=== PATIENT | male | born 1950 | race Caucasian/White ===

== ENCOUNTER 2018-10-17 13:09 | Inpatient (IN) | payer MEDICARE, MEDICAID ==
[~2018-10-17] VITALS: Ht 152.4 cm; Wt 68.0 kg
[2018-10-17 13:19] VITALS: BP 103/70
[2018-10-17] MEDS ORDERED: CLARITIN10 MG PO (13:26)
[2018-10-17] MEDS ORDERED: ZYRTEC10 M5 PO (13:26)
[2018-10-17] MEDS ORDERED: FLONASE 0.05%50 MCG NASAL (13:27)
[2018-10-17] MEDS ORDERED: [UNRECOGNIZED DRUG - OTHER] (13:27)
[2018-10-17] MEDS ORDERED: VITAMINC500 PO (13:27)
[2018-10-17] MEDS ORDERED: ASPIR 8181 M1 PO (13:27)
[2018-10-17 14:17] LABS: URINE BLOOD 3+ (Negative); URINE CLARITY CLEAR; URINE COLOR BROWN; URINE GLUCOSE-RANDOM NEGATIVE (Negative); URINE KETONES 1+ (Negative); URINE LEUKOCYTES-REFLEX 1+ (Negative); URINE PROTEIN 1+ (Negative); URINE SPECIFIC GRAVITY >= 1.030 (1.005-1.030)
[2018-10-17 14:21] LABS: ICTOTEST (BILI CONFIRMATORY) Positive (Negative); URINE BILIRUBIN 1+ (Negative); URINE NITRITE-REFLEX POSITIVE (Negative)
[2018-10-17 14:43] LABS: HEMATOCRIT 41.7 % (42.0-52.0); HEMOGLOBIN 14.3 gm/dL (14.0-18.0); MCH 28.8 pg (26.0-34.0); MCHC 34.2 g/dL (28.0-37.0); MCV 84.3 fL (80.0-100.0); MPV 8.4 fl. (7.2-11.1); NUCLEATED RBCS 0 /100WBC; PLATELET COUNT* 155 thou/uL (150-400); RBC 4.94 mil/uL (4.50-6.00); RDW-CV 14.4 % (10.5-14.5); WBC 9.7 thou/uL (4.0-11.0)
[2018-10-17 14:49] LABS: ANION GAP 9 mmol/L (7-16); BUN 23 mg/dL (7-18); CALCIUM 8.7 mg/dL (8.5-10.1); CHLORIDE 102 mmol/L (98-107); CO2 26 mmol/L (21-32); GLUCOSE 96 mg/dL (70-99); POTASSIUM 3.8 mmol/L (3.5-5.1); SODIUM 137 mmol/L (136-145)
[2018-10-17 14:56] LABS: SQUAMOUS >10 Many /LPF (0-3)
[2018-10-17 14:58] LABS: URINE RBC 3-10 Few /HPF (0-2)
[2018-10-17 14:59] LABS: ALBUMIN 2.7 g/dL (3.4-5.0); ALKALINE PHOSPHATASE 143 U/L (46-116); SGOT 67 U/L (15-37); SGPT 51 U/L (30-65); TOTAL BILIRUBIN 1.2 mg/dL (<0.1-1.0); TOTAL PROTEIN 7.1 g/dL (6.4-8.2); TROPONIN-I LEVEL <0.06 ng/mL (<0.06)
[2018-10-17 15:02] LABS: MUCUS >6 Heavy strn/LPF (None Seen)
[2018-10-17 15:03] LABS: WBC CLUMPS Few (None Seen)
[2018-10-17 15:04] LABS: CRYSTALS None Seen /LPF (None Seen); HYALINE CASTS 0-3 Few /LPF (None Seen)
[2018-10-17 15:09] LABS: ABSOLUTE LYMPHOCYTES 1.3 thou/uL (0.8-5.3); ABSOLUTE MONOCYTES 0.4 thou/uL (0.0-1.2); ABSOLUTE NEUTROPHILS 8.1 thou/uL (1.6-8.1); PLATELET ESTIMATE ADEQUATE
[2018-10-17 17:14] LABS: INR 1.1; PROTIME 11.2 Seconds (9.20-11.50)
[2018-10-17 17:38] VITALS: BP 104/79
--- NOTE | 2018-10-17 18:52 | NUR ---
PT ARRIVED TO UNIT ABOUT 174. VITALS STABLE. DENIED NAUSEA. HAS MINIMAL PAIN, DENIED MEDICATION. POSSIBLE SURGERY TOMORROW. NPO AFTER MIDNIGHT. IV IN R AC PATENT, INFUSING. BEDREST PER ORTH AT THIS TIME. DAUGHTER IN ROOM. FALL PRECAUTIONS IN PLACE. CALL LIGHT WITHIN REACH. WILL CONTINUE TO MONITOR.
[2018-10-17 20:00] VITALS: BP 117/65
[2018-10-18 04:04] LABS: HEMATOCRIT 39.4 % (42.0-52.0); HEMOGLOBIN 13.2 gm/dL (14.0-18.0); MCH 28.3 pg (26.0-34.0); MCHC 33.5 g/dL (28.0-37.0); MCV 84.4 fL (80.0-100.0); MPV 9.2 fl. (7.2-11.1); RBC 4.67 mil/uL (4.50-6.00); RDW-CV 14.5 % (10.5-14.5); WBC 5.8 thou/uL (4.0-11.0)
[2018-10-18 04:19] LABS: ALBUMIN 2.2 g/dL (3.4-5.0); CREATININE 0.8 mg/dL (0.6-1.3); MAGNESIUM 1.8 mg/dL (1.8-2.4); POTASSIUM 3.8 mmol/L (3.5-5.1); TOTAL BILIRUBIN 0.6 mg/dL (<0.1-1.0); TOTAL PROTEIN 6.2 g/dL (6.4-8.2)
[2018-10-18 08:00] VITALS: BP 126/69
--- NOTE | 2018-10-18 08:21 | NUR ---
Oriented x 3 but may have some forgetfulness. He was trying to pull off his gown and yelling out at times. He has voided frquently and it's been small amounts, he was bladder scanned and there was only 16 mls. This am he is oriented and did sign consent for request for medical records from [facility] regarding a possible AAA. Surgery to his left hip is on hold for now. He has had nothing by mouth since midnight. Vitals have been stable this shift. He was medicated x 2 for pain. He has slept well.
--- NOTE | 2018-10-18 11:38 | NUR ---
SW met pt and pt 2 dtrs in room to complete initial assessment, introduce self, and SW role. Pt alert and responds slowly in conversation. Pt lived at home in [facility] with a caregiver but for the past month, pt has been living with pt dtr in [place]. Pt dtrs requested that if pt needs SNF at dc, pt be placed in SNF in area. Pt dtr said that pt will most likely live with pt dtr as long as needed after surgery and/or SNF. SW to continue to follow to assist with safe dc planning.
[2018-10-18 11:47] VITALS: BP 126/69
[2018-10-18 15:44] VITALS: BP 118/79
--- NOTE | 2018-10-18 16:59 | EKG ---
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
--- NOTE | 2018-10-18 17:50 | NUR ---
PT A&Ox4. HARD OF HEARING AND PARTIAL VISION LOSS. HAD ORIF DONE BY KOJO. MEPILEX IS CLEAN DRY AND INTACT. SCDs AND ICE PACK IN PLACE. IV L FA PATENT. TOLERATING DIET. HAS NOT GOT UP SINCE SURGERY. ON 3. DAUGHTER IN ROOM. PAIN TOLERATED, DENIED PAIN MEDS. DENIED NAUSEA. FALL PRECAUTIONS IN PLACE. CALL LIGHT WITHIN REACH. WILL CONTINUE TO MONITOR.
[2018-10-18 20:00] VITALS: BP 104/71
[2018-10-19] VITALS: BP 124/81
[2018-10-19 03:53] VITALS: BP 129/80
[2018-10-19 04:08] LABS: HEMATOCRIT 42.5 % (42.0-52.0); HEMOGLOBIN 14.1 gm/dL (14.0-18.0)
--- NOTE | 2018-10-19 05:24 | NUR ---
ASSUMED PATIENT CARE AT 1900. PATIENT ALERT AND ORIENTED TIMES FOUR, CAN BE CONFUSED AT TIMES. NO COMPLAINTS OF PAIN OR DISCOMFORT NOTED. FAMILY AT BEDSIDE. IV PATENT TO FLUSHES. DRESSING C/D/I. STREET SWEEPER OPERATOR AND HOURLY ROUNDING COMLETED CHARTED
[2018-10-19 08:00] VITALS: BP 102/64
--- NOTE | 2018-10-19 13:22 | OP ---
[facility] [address] [place] [address] OPERATIVE REPORT Name: KEVIN SORIA Room: [address]#: [id number] Admission: 10/17/18 Attend Phys: Richar Chowdhury MD Discharge: Date of : 46 Report #: [id number] THIS REPORT FOR: //name// CC: Richar Chowdhury Physician staff [facility] DICTATED BY: Jl Gomez DO DATE OF SERVICE: 10/18/2018 PREOPERATIVE DIAGNOSIS: Left hip nondisplaced intertrochanteric/basicervical fracture. POSTOPERATIVE DIAGNOSIS: Left hip nondisplaced intertrochanteric/basicervical fracture. PROCEDURE: Left hip open reduction and internal fixation utilizing Ace Versa-Fx dynamic hip screw with sideplate with the following components: 1. Two hole 130-degree standard sideplate. 2. 100 mm x 12.7 mm standard thread compression lag screw. 3. 4.7 mm x 19 mm Hex Head compression screw. 4. 40 mm length and 38 mm length, 4.5 mm cortical screws. SURGEON: Ezequiel Thomas DO REGISTERED PUBLIC HEALTH NURSE: Jl Gomez DO ANESTHESIA: General. ESTIMATED BLOOD LOSS: 50 mL. ANTIBIOTICS: Unscheduled Rocephin IV. SPECIMENS: None. DRAINS: None. COMPLICATIONS: None. DISPOSITION: Stable to PACU and transferred back to the hospital floor for standard postoperative care. INDICATIONS FOR PROCEDURE: The patient is a pleasant 68-year-old male who unfortunately was seen yesterday at [facility] for consultation due to left hip pain after a fall where he landed directly on his left [place] [address] OPERATIVE REPORT Name: KEVIN SORIA Room: [address] IN [facility].#: [id number] Admission: 10/17/18 Attend Phys: Richar Chowdhury MD Discharge: Date of : 46 Report #: [id number] demonstrated a minimally displaced left hip intertrochanteric fracture. CT scan confirmed similar diagnosis. Recommendation was made for left hip open reduction and internal fixation with a DHS type device with compression screw and sideplate. The risks, benefits, complications, indications and alternative treatments were discussed and the patient wished to proceed with surgery today. DESCRIPTION OF PROCEDURE: The patient was seen in preoperative holding area. Correct operative site, left hip was initialed. The patient was taken back to the operating suite, placed in supine position on the [place] traction table, given benefit of general anesthesia. He was positioned in a well-padded traction boot for the left lower extremity and right lower extremity was flexed and abducted in a normal fashion. All bony prominences were well padded. Left hip was prepped and draped in typical fashion. Surgery began with a time-out, identifying correct patient, correct procedure, correct operative site, preoperative antibiotics and correct performing surgeon. Next, a straight lateral approach to the lateral aspect of the femur after marking appropriate location under fluoroscopic guidance was performed. Skin was incised roughly 5 cm in length with a 10 blade scalpel. Sharp dissection was taken down to the IT band, which was incised in line with the incision followed by the fascia. The fascia of the vastus lateralis muscle belly was then split longitudinally bluntly down to the femoral shaft. The guide for the lag screw was set at 130 degrees and utilizing the standard guide pin this was inserted through the guide and up into the femoral neck and head in a center-center position on both AP and lateral fluoroscopic images up into subchondral bone. We measured for roughly 100 mm lag screw. We then inserted our lag screw over our guidewire in the normal fashion until it was seated within the lateral cortex. We were then able to impact our 2-hole side DHS plate that locked that into her lag screw over top of this through the lateral cortex after we had reamed appropriately and this was then impacted into position that aligned up with our femoral shaft. We then placed a compression screw through the end of the plate and through the lag screw to compress the plate to the lag screw. We then placed two 4.5 mm cortical screws that were drilled and filled in the femoral shaft in normal fashion. One measured 40 mm, the other measured 38 mm. These had great cortical bite. Final tightening was performed on all screws. Final x-ray images were obtained, both in AP and lateral fluoroscopic images showing a great anatomic reduction of her hip fracture and great center-center location of our lag screw and appropriate tip to apex distance. Wound was thoroughly irrigated. IT band was closed in a [id number] fashion with #1 Vicryl suture. Subcutaneous layer was closed in a simple interrupted fashion with 2-0 Monocryl suture. Dennison were applied to the skin. Standard dressings were applied consisting of [place] [address] OPERATIVE REPORT Name: KEVIN SORIA Room: [address] IN [facility].#: [id number] Admission: 10/17/18 Attend Phys: Richar Chowdhury MD Discharge: Date of : 46 Report #: [id number] was awakened from general anesthesia and transferred in stable condition to the PACU. All sponge and needle counts were correct x 2. <ELECTRONICALLY SIGNED> By: Ezequiel Thomas DO 10/19/18 1322 1408 [id number] Thomas DO /areli
[2018-10-19 16:42] VITALS: BP 109/77
--- NOTE | 2018-10-19 17:17 | NUR ---
PT A&Ox4. VITALS STABLE. WORKED WELL WITH PT. UP WITH 1 USING GAITBELT AND WALKER. DRESSING IS CLEAN, DRY AND INTACT. PAIN CONTROLLED WITH NORCO AND OXY IR. FAMILY IN ROOM. TOLERATING DIET WELL. IV PATENT. FALL PRECAUTIONS IN PLACE. CALL LIGHT WITHIN REACH. WILL CONTINUE TO MONITOR.
[2018-10-19 19:55] VITALS: BP 101/69
--- NOTE | 2018-10-20 04:43 | NUR ---
ASSUMED PATIENT CARE AT 1900. PATIENT ALERT AND ORIENTED TIMES FOUR WITH CONFUSION. MINOR COMPLAINTS OF PAIN. ORAL MEDICATION GIVEN. ABLE TO AMBULATE WITH VERBAL DIRECTION, GAIT BELT AND WALKER. DRESSING C/D/I. LIGHTNING PROTECTION INSTALLER AND HOURLY ROUNDING COMPLETED DOCUMENTED.
[2018-10-20 04:46] LABS: ABSOLUTE EOSINOPHILS 0.1 thou/uL (0.0-0.7); ABSOLUTE LYMPHOCYTES 1.3 thou/uL (0.8-5.3); ABSOLUTE MONOCYTES 0.5 thou/uL (0.0-1.2); ABSOLUTE NEUTROPHILS 3.9 thou/uL (1.6-8.1); BASOPHILS 0.3 %; HEMATOCRIT 39.6 % (42.0-52.0); HEMOGLOBIN 13.4 gm/dL (14.0-18.0); MCH 28.7 pg (26.0-34.0); MCHC 33.8 g/dL (28.0-37.0); MCV 84.9 fL (80.0-100.0); MONOCYTES 8.7 %; MPV 8.8 fl. (7.2-11.1); NUCLEATED RBCS 0 /100WBC; PLATELET COUNT* 170 thou/uL (150-400); RBC 4.66 mil/uL (4.50-6.00); RDW-CV 14.7 % (10.5-14.5); WBC 5.8 thou/uL (4.0-11.0)
[2018-10-20 05:01] LABS: CALCIUM 8.7 mg/dL (8.5-10.1); CREATININE 0.8 mg/dL (0.6-1.3); POTASSIUM 4.8 mmol/L (3.5-5.1)
[2018-10-20 08:00] VITALS: BP 106/76
--- NOTE | 2018-10-20 12:14 | NUR ---
ANN spoke with inpt facility rehab director Vonda and pt referral is pending; waiting on OT orders and assessment, ANN spoke with RN RANDALL who was able to receive and enter order for OT. SW to continue to follow to assist with safe dc planning/placement pending inpt rehab vs other if needed.
[2018-10-20 17:45] VITALS: BP 92/64
--- NOTE | 2018-10-20 18:11 | NUR ---
PT A&Ox4. VITALS STABLE. UP WITH 1 MIN ASSIST USING GAITBELT AND WALKER. BM TODAY AFTER TAKING MILK OF MAG. IV R AC PATENT. EATING WELL. PAIN CONTROLLED WITH NORCO. DAUGHTERS IN ROOM MOST OF THE DAY. FALL PRECAUTIONS IN PLACE. CALL LIGHT WITHIN REACH. WILL CONTINUE TO MONITOR.
[2018-10-20 20:00] VITALS: BP 128/82
--- NOTE | 2018-10-21 04:29 | NUR ---
ASSUMED PATIENT CARE AT 1900. PATIENT ALERT AND ORIENTED TIMES FOUR, CAN BE CONFUSED AT TIMES. NO COMPLAINTS OF PAIN OR DISCOMFORT NOTED. ABLE TO AMBULATE WITH ASSISST OF ONE AND A WALKER TO THE RESTROOM. DOWEL SANDER OPERATOR AND HOURLY ROUNDING COMPLETED DOCUMENTED.
[2018-10-21 08:00] VITALS: BP 118/76
--- NOTE | 2018-10-21 13:40 | NUR ---
SPOKE WITH GAIL/REHAB LIASON EARLIER TODAY. SHE SAID SHE WOULD DISCUSS WITH . NOTIFIED BY HER AT THIS TIME THAT PT.CAN ADMIT TO INPT.REHAB UNIT TODAY. SHE WILL CALL MADISON CROCKETT WITH A TIME.
[2018-10-21] MEDS ORDERED: NORCO 5-325 TA1 EACH PO (15:58)
[2018-10-21] MEDS ORDERED: ELIQUIS2.5 MG PO (15:58)
[2018-10-21] MEDS ORDERED: KEFLEX500 M1 PO (16:00)
[2018-10-21] MEDS ORDERED: VITAMIN D2000 UNIT PO (16:01)
[2018-10-21] MEDS ORDERED: MAG-AL PLUS SUS30 ML PO (16:02)
[2018-10-21] MEDS ORDERED: ROXICODONE5 M2 PO (16:03)
[2018-10-21] MEDS ORDERED: NICOTINE TRANSD14 M1 TRANSDERM (16:04)
[2018-10-21 16:18] VITALS: BP 108/64
--- NOTE | 2018-10-21 16:34 | NUR ---
SHIFT NOTE - PT TENTATIVELY BEING TRANSFERRED TO [facility] IN REHAB THIS EVENING. REPORT CALLED TO MADISON CHANEY. NO QUESTIONS. PT UP TO BR WITH WALKER/GAIT BELT WITH ASSIST X 1. WILL CONTINUE TO MONITOR.
== END 2018-10-21 17:43 | DRG 481 ==
LOC: M.ERS 13:09 → M.TBA-ER 16:16 → M.ORTHSURG 16:16
PROVIDERS: Family Medicine; Nurse Practitioner Family; Orthopaedic Surgery; ADMIT Internal Medicine
PROC: 0QS704Z Reposition Left Upper Femur with Internal Fixation Device, Open Approach (ICD-10-PCS; principal; 2018-10-18)
DX: M80.052A Age-related osteoporosis with current pathological fracture, left femur, initial encounter for fracture (principal); E44.0 Moderate protein-calorie malnutrition; N30.01 Acute cystitis with hematuria; H54.7 Unspecified visual loss; F17.210 Nicotine dependence, cigarettes, uncomplicated; I71.4 Abdominal aortic aneurysm, without rupture; W18.39XA Other fall on same level, initial encounter; S72.145A Nondisplaced intertrochanteric fracture of left femur, initial encounter for closed fracture; E05.90 Thyrotoxicosis, unspecified without thyrotoxic crisis or storm; Z79.82 Long term (current) use of aspirin; Z86.73 Personal history of transient ischemic attack (TIA), and cerebral infarction without residual deficits; Z79.899 Other long term (current) drug therapy; Z68.29 Body mass index [BMI] 29.0-29.9, adult; Y93.89 Activity, other specified; Y92.89 Other specified places as the place of occurrence of the external cause; Y99.8 Other external cause status

== ENCOUNTER 2018-10-21 15:49 | Inpatient (IN) | payer MEDICARE, MEDICAID ==
[~2018-10-21] VITALS: Ht 167.6 cm; Wt 68.5 kg
[~2018-10-21 15:49] MED LIST: ASPIR 8181 M1 PO; CLARITIN10 MG PO; FLONASE 0.05%50 MCG NASAL; VITAMINC500 PO; ZYRTEC10 M5 PO; [UNRECOGNIZED DRUG - OTHER]
[2018-10-21] MEDS ORDERED: ELIQUIS2.5 MG PO (15:58)
[2018-10-21] MEDS ORDERED: NORCO 5-325 TA1 EACH PO (15:58)
[2018-10-21] MEDS ORDERED: KEFLEX500 M1 PO (16:00)
[2018-10-21] MEDS ORDERED: VITAMIN D2000 UNIT PO (16:01)
[2018-10-21] MEDS ORDERED: MAG-AL PLUS SUS30 ML PO (16:02)
[2018-10-21] MEDS ORDERED: ROXICODONE5 M2 PO (16:03)
[2018-10-21] MEDS ORDERED: NICOTINE TRANSD14 M1 TRANSDERM (16:04)
[2018-10-21 18:19] VITALS: BP 116/68
[2018-10-21 19:15] VITALS: BP 113/92
[2018-10-21 20:00] LABS: URINE BILIRUBIN NEGATIVE (Negative); URINE BLOOD 2+ (Negative); URINE CLARITY CLEAR; URINE COLOR YELLOW; URINE GLUCOSE-RANDOM NEGATIVE (Negative); URINE KETONES NEGATIVE (Negative); URINE LEUKOCYTES-REFLEX NEGATIVE (Negative); URINE NITRITE-REFLEX NEGATIVE (Negative); URINE PROTEIN NEGATIVE (Negative); URINE SPECIFIC GRAVITY 1.015 (1.005-1.030); URINE UROBILINOGEN 0.2 E.U./dl (0.2-1.0)
--- NOTE | 2018-10-21 20:00 | NUR ---
SNACK PROVIDED. TOOK MEDICATIONS WHOLE WITH WATER. PATIENT HAS POOR VISION AND REQUIRES ASSISTANCE WITH POSITIONING THE URINAL. TWO FEMALE VISITORS WERE HERE AT SHIFT CHANGE VISITING AND ASSISTING PATIENT WITH PLACING THE TV ON THE CHANNEL WITH THE [employer] GAME.
[2018-10-21 20:09] LABS: BACTERIA-REFLEX 1-9 Few /HPF (None Seen); MUCUS None Seen strn/LPF (None Seen); SQUAMOUS >10 Many /LPF (0-3); URINE WBC-REFLEX 0-5 Rare /HPF (0-5)
[2018-10-21 20:10] LABS: CASTS None Seen /LPF (None Seen); CRYSTALS None Seen /LPF (None Seen)
[2018-10-22 03:56] LABS: HEMOGLOBIN 13.7 gm/dL (14.0-18.0); MCH 27.8 pg (26.0-34.0); MCHC 32.6 g/dL (28.0-37.0); MCV 85.1 fL (80.0-100.0); MPV 8.7 fl. (7.2-11.1); RBC 4.93 mil/uL (4.50-6.00); RDW-CV 14.8 % (10.5-14.5); WBC 6.5 thou/uL (4.0-11.0)
[2018-10-22 04:56] LABS: ALBUMIN 2.2 g/dL (3.4-5.0); CALCIUM 8.7 mg/dL (8.5-10.1); CREATININE 0.7 mg/dL (0.6-1.3); POTASSIUM 4.1 mmol/L (3.5-5.1); TOTAL BILIRUBIN 0.5 mg/dL (<0.1-1.0); TOTAL PROTEIN 6.5 g/dL (6.4-8.2)
--- NOTE | 2018-10-22 06:49 | NUR ---
ASSISTED WITH USING THE URINAL X 5. NO COMPLAINTS VOICED EXCEPT FOR HAVING TO VOID OFTEN. HOURLY ROUNDING IN PROGRESS.
[2018-10-22 08:00] VITALS: BP 115/79
--- NOTE | 2018-10-22 18:41 | NUR ---
HOURLY ROUNDING AND FALL PRECAUTIONS IN PLACE. PT HAS TUNNEL VISION AND NEEDS ASSISTANCE WITH TRAY SET UP, CUES FOR USING WALKER AND FREQUENT OBSERVATION. NO ACUTE DISTRESS, NO C/O PAIN THIS SHIFT.
--- NOTE | 2018-10-22 20:45 | NUR ---
DAUGHTER HERE EARLIER VISITING WITH PATIENT. AMBULATES WITH CGA, GAITBELT, CUEING DUE TO POOR VISION. TYLENOL GIVEN FOR COMPLAINT OF PAIN IN LEFT RIB AREA RATED "4". TOOK MEDICATIONS WHOLE ALL AT ONCE WITH WATER.
[2018-10-22 21:00] VITALS: BP 107/65
--- NOTE | 2018-10-23 05:52 | NUR ---
RESTED QUIETLY. NO FURTHER COMPLAINT OF PAIN. ASSISTED WITH URINAL X 2 AND USED URINAL WITHOUT ASSISTANCE X ONE. HOURLY ROUNDING IN PROGRESS.
[2018-10-23 06:28] VITALS: BP 124/80
[2018-10-23 08:00] VITALS: BP 124/80
[2018-10-23 20:00] VITALS: BP 114/57
--- NOTE | 2018-10-24 05:28 | NUR ---
RESTING IN BED AT CHANGE OF SHIFT. TURNS SELF. VOIDS PER URINAL, NURSING EMPTIES. TAKES PILLS WHOLE WITH WATER. MEDICATED WITH APAP FOR PAIN AT HS. LT HIP DRESSING C/D/I. DAUGHTER JOSEPHINE HERE VISITING UNTIL AFTER 2099. TURNS SELF. NO FURTHER C/O PAIN. HOURLY ROUNDS CONTINUE. BED ALARM ON. CALL LITE IN REACH.
[2018-10-24 08:10] VITALS: BP 119/75
--- NOTE | 2018-10-24 12:12 | NUR ---
Nutrition: Consult for pt admitted to rehab unit. Admitted with Lt femoral FX. Eating 100% of Regular diet. +BM. Wt stable, 149#. Hx: old CVA, vit D def. Physician indicated Moderate PCM - defer. MVI and Ensure Enlive are ordered. Appears at mild nutrition risk. Will follow weekly.
--- NOTE | 2018-10-24 17:05 | NUR ---
SW met with pt and completed initial assessment, introduced self, and SW role on inpt rehab unit. Pt alert, oriented, but not the best historian. Pt lives at home with his significant other of 18 years. Pt has a cane. Pt does not recall any HH hx. Pt has a dtr but pt says that pt does not live with pt dtr. SW to continue to follow to assist with safe dc planning.
[2018-10-24 20:00] VITALS: BP 101/67
--- NOTE | 2018-10-25 05:53 | NUR ---
assumed patient care at 1900. patient alert and oriented times four, can be confused at times. Ambulates with gait belt, walker and verbal cuing. Minor complaints of pain, did not want anything for that. patternmaker hand and hourly rounding completed as charted.
[2018-10-25 07:39] VITALS: BP 110/71
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
--- NOTE | 2018-10-25 18:01 | NUR ---
PATIENT HAS BEEN A/O X 4, FORGETFUL AT TIMES. MEDICATED FOR LEFT RIB PAIN WITH TYLENOL WITH RELIEF NOTED. PATIENT UP IN CHAIR IN BETWEEN THERAPY SESSIONS. PATIENT UP SBA, GB, AND WALKER. AMBULATING FROM PATIENT ROOM TO DINING ROOM FOR LUNCH AND DINNER. PATIENT UP SBA, GB, AND WALKER TO BATHROOM. UTILZING GRAB BAR FOR TOILET TRANSFERS. PATIENT VOIDING PER URINAL WHEN NOT AMBULATING TO BATHROOM. PATIENT PARTICIPATED WITH ALL THERAPIES THIS SHIFT. PATIENT TAKES PILLS WHOLE WITH WATER. PATIENT'S APPETITE GOOD. PATIENT NEEDS FREQUENT CUEING DUE TO VISION FOR DIRECTION. PATIENT'S DAUGHTERS VISITED THIS AFTERNOON. BED/CHAIR ALARMS UTILZED. HOURLY ROUNDING MAINTAINED. CALL LIGHT WITHIN REACH. WILL CONTINUE WITH PLAN OF CARE.
[2018-10-25 19:00] VITALS: BP 101/59
--- NOTE | 2018-10-26 05:55 | NUR ---
ASSUMED PATIENT CARE AT 1900. PATIENT ALERT AND ORIENTED TIMES FOUR WITH NOTED BOUTS OF CONFUSION AND FORGETFULNESS. TELPSYCH CONSULT CALLED IN AND WILL BE DONE THIS AM. NO COMPLAINTS OF PAIN OR DISCOMFORT NOTED THROUGH THE NIGHT. ABLE TO AMBULATE WITH WALKER GAIT BELT AND ASSISST OF ONE TO THE RESTROOM. SOME LIMITED WEIGHT BEARING DONE BY PATIENT ON LEFT LEG. BED MOBILITY IS INDEPENDENT. INDPENDENT WITH TOILETING CARE. NUTRITION INTERNSHIP AND HOURLY ROUNDING COMPLETED CHARTED
--- NOTE | 2018-10-26 06:18 | NUR ---
PATIENT GAVE VERBAL CONSENT FOR PSYCHIATRIC CONSULTATION VIA TELEPSYCH
--- NOTE | 2018-10-26 07:52 | NUR ---
TELE PSYCH VISIT COMPLETED, PT DEEMED COMPETENT.
[2018-10-26 08:00] VITALS: BP 116/75
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
[2018-10-26 19:00] VITALS: BP 108/70
[2018-10-26 21:32] LABS: URINE BILIRUBIN NEGATIVE (Negative); URINE BLOOD 2+ (Negative); URINE CLARITY CLEAR; URINE COLOR YELLOW; URINE GLUCOSE-RANDOM NEGATIVE (Negative); URINE KETONES TRACE (Negative); URINE LEUKOCYTES NEGATIVE (Negative); URINE NITRITE NEGATIVE (Negative); URINE PROTEIN NEGATIVE (Negative); URINE SPECIFIC GRAVITY 1.025 (1.005-1.030); URINE UROBILINOGEN 0.2 E.U./dl (0.2-1.0)
[2018-10-26 21:41] LABS: CASTS None Seen /LPF (None Seen); CRYSTALS None Seen /LPF (None Seen); MUCUS None Seen strn/LPF (None Seen); SQUAMOUS >10 Many /LPF (0-3); URINE RBC 3-10 Few /HPF (0-2)
[2018-10-26 21:42] LABS: BACTERIA 1-9 Few /HPF (None Seen); URINE WBC 0-5 Rare /HPF (0-5)
[2018-10-27 07:45] VITALS: BP 121/77
--- NOTE | 2018-10-27 07:45 | NUR ---
ASSUMED CARES AT 1920. ALERT AND ORIENTED. PLEASANT. MIN ASSIST WITH GAIT BELT AND WALKER. UA SAMPLE WAS COLLECTED AND SENT TO LAB. DRSG TO LEFT HIP INTACT. PT USED URINAL AND RN EMPTIED. SLEPT WELL OTHERWISE. CALL LIGHT IN REACH AND BED ALARM ON.
--- NOTE | 2018-10-27 18:06 | NUR ---
AM ASSESSMENT AND VITAL SIGN COMPLETED DOCUMENTED. PT PARTICIPATED IN ALL SCHEDULED THERAPY SESSIONS. HYDROCODONE GIVEN FOR PAIN WITH PHYSICAL THERAPY. FALL PRECAUTIONS AND HOURLY ROUNDING CONTINUE.
[2018-10-27 19:40] VITALS: BP 100/55
--- NOTE | 2018-10-28 05:09 | NUR ---
ASSUMED CARE OF PT AT 1900 PT ALERT AND ORIENTED VSS PT AMBULATED TO THE BATHROOM WITH SUPERVISION GB AND WALKER. PT DENIED ANY COMPLAINTS AND SLEPT THROUGH THE NIGHT. WILL CONTINUE PLAN OF CARE.
[2018-10-28 07:15] VITALS: BP 107/62
--- NOTE | 2018-10-28 18:19 | NUR ---
PT A&Ox4. VITALS STABLE. WORKED WELL WITH THERAPIES. ATE WELL. UP WITH 1 USING GAITBELT AND WALKER. PAIN CONTROLLED WITH NORCO. DRESSING IS CLEAN, DRY AND INTACT. FALL PREACAUTIONS IN PLACE. CALL LIGHT WITHIN REACH. WILL CONTINUE TO MONITOR.
[2018-10-28 20:34] VITALS: BP 115/67
--- NOTE | 2018-10-28 21:25 | NUR ---
AMBULATED TO THE BATHROOM WITH CGA, GAITBELT, WALKER TO VOID. SNACK PROVIDED. PAIN MED GIVEN FOR COMPLAINT OF GENERALIZED PAIN RATED "6". SOFT CALL LIGHT ATTACHED TO T-SHIRT.
--- NOTE | 2018-10-29 05:47 | NUR ---
RESTED QUIETLY. ASSISTED WITH THE URINAL DURING THE NIGHT. NO FURTHER COMPLAINT OF PAIN. MEPILEX ON DORSAL AREA OF LEFT FOOT CHANGED DUE TO PREVIOUS ONE BECOMING FULLY SATURATED WITH RED DRAINAGE. AREA CLEANSED WITH WOUND CLEANSER. TOOK MEDICATION WHOLE TWO AT A TIME WITH APPLESAUCE. HOURLY ROUNDING IN PROGRESS.
--- NOTE | 2018-10-29 06:15 | NUR ---
ASSUMED CARE AT 1920. ALERT AND ORIENTED. PLEASANT. DENIED ANY NEED FOR PAIN MEDS. WBAT LLE. LEFT HIP DRSG INTACT. MIN ASSIST WITH GAIT BELT AND WALKER. UP TO BATHROOM. OTHERWISE USES URINAL WHEN IN BED. TRIED TO GET UP OUT OF BED ONCE WITHOUT CALLING DESPITE CALL LIGHT AT SIDE. SLEPT WELL OTHERWISE. CALL LIGHT IN REACH AND BED ALARM ON.
[2018-10-29 07:15] VITALS: BP 125/74
--- NOTE | 2018-10-29 18:03 | NUR ---
PATIENT IS ALERT AND ORIENTED X 3. TO MDR FOR MEALS. PATIENT USED WALKER TO WALK TO THE DINNING AREA. PATIENT DENIES PAIN OR DISCOMFORT. NO SIGN OF DISTRESS, CONT. WITH PLAN OF CARE AT THIS TIME.,
[2018-10-29 20:25] VITALS: BP 105/76
--- NOTE | 2018-10-30 05:27 | NUR ---
ASSUMED CARE AT 1920. ALERT AND ORIENTED. PLEASANT. DENIED ANY PAIN. LEFT HIP DRSG INTACT. MIN ASSIST WITH GAIT BELT AND WALKER. USED URINAL OVERNIGHT. SLEPT WELL OTHERWISE. CALL LIGHT IN REACH AND BED ALARM ON.
[2018-10-30 08:00] VITALS: BP 137/79
--- NOTE | 2018-10-30 16:22 | NUR ---
PATIENT WAS GIVEN A SHOWER, PARTICIPATED IN CLEASNING AMAYA AREA AND UPPER EXT. AMBULATES WITH GAIT BELT AND WALKER TO/FROM BATHROOM AND DINNING AREA. NO COMPLAINTS OF PAIN.
[2018-10-30 19:00] VITALS: BP 106/69
--- NOTE | 2018-10-30 23:17 | NUR ---
ASSUMED CARE AT 1930. PATIENT RESTING IN RECLINER UNTIL AROUND 2044. UP WITH MIN ASSIST, GAIT BELT, WALKER. VOIDS PER URINAL, SOMETIMES STANDING. DRESSING TO LT HIP C/D/I. NO C/O PAIN. TAKES PILLS WHOLE WITH WATER. TURNS SELF. HOURLY ROUNDS CONTINUE. BED ALARM ON. CALL LITE IN REACH.
[2018-10-31 05:37] LABS: CREATININE 0.9 mg/dL (0.6-1.3); POTASSIUM 4.5 mmol/L (3.5-5.1)
--- NOTE | 2018-10-31 06:36 | NUR ---
SLEPT MOST OF THE NIGHT. TURNS SELF. VOIDS STANDING PER URINAL. TWICE TRIED TO GET UP WITHOUT CALLING, BED ALARM SOUNDED. PATIENT ASSISTED WITH VOIDING. MEDICATED ONCE FOR PAIN WITH RELIEF. HOURLY ROUNDS CONTINUE. BED ALARM ON. CALL LITE IN REACH.
[2018-10-31 08:02] VITALS: BP 108/84
--- NOTE | 2018-10-31 16:49 | NUR ---
ASSUMED CARE AT 0730. ALERT ORIENTED PLEASANT COOPERATIVE. HX OF OLD CVA AND L FEMORAL NECK FX WBATLLE. DENIES NEED FOR PRN PAIN MED WHEN ASKED. TRANSFERS WITH SBA G BELT WALKER BUT NEEDS MUCH UEING FOR DIRECTION L OR RIGHT ETC. USES CALL LIGHT APPROPRIATELY FOR ASSIST. FEEDS SELF TAKES MEDS WITHOUT DIFFICULTY. PARTICIPATING IN THERAPIES OTHERWISE UP IN RECLINER AT BEDSIDE WITH BLES ELEVATED. DRESSING CHANGED TO L HIP AFTER SHOWER THIS A.M.
[2018-10-31 20:00] VITALS: BP 104/67; BP 153/61
--- NOTE | 2018-11-01 05:29 | NUR ---
ASSUMED CARES AT 1920. ALERT AND ORIENTED. PLEASANT. DENIED ANY PAIN. MIN ASSIST WITH GAIT BELT AND WALKER. UP TO BATHROOM OR USES URINAL. SLEPT WELL. CALL LIGHT IN REACH AND BED ALARM ON.
[2018-11-01 07:21] VITALS: BP 119/80
--- NOTE | 2018-11-01 15:36 | NUR ---
ASSUMED CARE AT 0730. ALERT ORIENTED PLEASANT COOPERATIVE. HX OF OLD CVA FALL WITH FX L FEMORAL NECK WITH ORIF. WBATLLE. TRANSFERS WITH SBA GBELT WALKER AMBULATES TO BR TO VOID AND HAD A BM. ABLE TO DO HYGEINE AND CLOTHING ADJUSTMENTS. NEEDS DIRECTION LEFT RIGHT TURN WHEN AMBULATING. FEEDS SELF TAKES MEDS WITHOUT DIFFICULTY. PARTICIPATING IN THERAPIES. TO DR FOR MEALS. DENIES REQUESTS OR PAIN. USES CALL LIGHT FOR ASSISTANCE.
--- NOTE | 2018-11-01 17:23 | NUR ---
LEFT MESSAGE WITH DR. VASQEUZ OFFICE RE KENDALL L FEMUR REMOVAL IT HAS BEEN 2 WEEKS SINCE SURGERY.
[2018-11-01 20:16] VITALS: BP 110/67
--- NOTE | 2018-11-02 05:18 | NUR ---
ASSUMED CARE AT 1920. ALERT AND ORIENTED. PLEASANT. DENIED ANY PAIN. MIN ASSIST WITH GAIT BELT AND WALKER. UP TO BATHROOM. OTHERWISE USES URINAL AND NURSING EMPTIES. LEFT HIP DRSG INTACT. SLEPT WELL. CALL LIGHT IN REACH AND BED ALARM ON.
[2018-11-02 08:04] VITALS: BP 126/78
--- NOTE | 2018-11-02 14:28 | NUR ---
SW met with pt and pt dtr to review team conference summary and plan for pt to dc Wednesday. SW explained team's recommendation for SNF due to pt continuing to need more therapies and pt continuing to make progress towards goals. Pt and pt dtr in agreement with plan and pt preference for [facility]. SW to fax referral and to continue to follow to assist with safe dc planning/placement.
--- NOTE | 2018-11-02 18:13 | NUR ---
AM ASSESSMENT AND VITAL SIGNS COMPLETED DOCUMENTED. PT HAS BEEN COOPERATIVE WITH NURSING AND HAS WORKED WITH ALL THERAPIES. PT USES THE CALL LIGHT APPROPRIATELY. DRESSING TO LEFT HIP REMAINS C/D/I. FALL PRECAUTIONS AND HOURLY ROUNDING CONTINUE.
--- NOTE | 2018-11-02 19:20 | NUR ---
IN THE BATHROOM. JUST HAD A SMALL FORMED BM. DID OWN AMAYA CARE AND CLOTHING ADJUSTMENTS. ASSISTED FROM TOILET TO CHAIR WITH SBA, GAITBELT, WALKER, DIRECTIONAL CUES DUE TO POOR VISION. STOPPED AT SINK ON THE WAY TO THE CHAIR TO WASH HIS HANDS. ASSISTED WITH CHANGING TV CHANNEL SO PATIENT COULD WATCH [employer] GAME PER REQUEST. HAS SACK WITH MULTIPLE SNACKS BROUGHT IN BY FAMILY. TOOK MEDICATIONS WHOLE WITH WATER. CALL LIGHT AND URINAL WITHIN REACH.
[2018-11-02 20:25] VITALS: BP 101/62
--- NOTE | 2018-11-03 05:28 | NUR ---
RESTED QUIETLY. TURNS SELF IN BED. USED THE URINAL DURING THE NIGHT. NO COMPLAINTS VOICED. HOURLY ROUNDING IN PROGRESS.
[2018-11-03 08:00] VITALS: BP 124/78
--- NOTE | 2018-11-03 20:10 | NUR ---
SITTING UP IN RECLINER WATCHING TV. AMBULATED TO THE BATHROOM WITH SBA, GAITBELT, WALKER, DIRECTIONAL CUES DUE TO TUNNEL VISION. LEFT HIP INCISION OPEN TO AIR, WELL APPROXIMATED, NO REDNESS. DENIES DISCOMFORT. CALL LIGHT AND URINAL WITHIN REACH.
[2018-11-03 20:23] VITALS: BP 103/62
--- NOTE | 2018-11-04 05:13 | NUR ---
RESTED QUIETLY. NO COMPLAINTS VOICED. HOURLY ROUNDING IN PROGRESS.
[2018-11-04 09:12] VITALS: BP 116/60
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
[2018-11-04 20:30] VITALS: BP 102/58
--- NOTE | 2018-11-05 05:48 | NUR ---
ASSUMED PT CARE AT 1930, PT ALERT AND ORIENTED X4, EXTREMELY [place] AND HAS VISUAL DEFICITS. TRANSFERS WITH MIN ASSIST, GAIT BELT AND WALKER NEEDS DIRECTIONAL CUES FOR POOR VISION. USES URINAL OVERNIGHT, STAFF EMPTIES. NO COMPLAINTS OF PAIN. 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 CALL LIGHT AND FREQUENTLY USED ITEMS WITHIN REACH. HOURLY ROUNDING IN PROGRESS, WILL CONTINUE TO MONITOR.
[2018-11-05 07:52] VITALS: BP 115/69
--- NOTE | 2018-11-05 18:10 | NUR ---
AM ASSESSMENT AND VITAL SIGNS COMPLETED DOCUMENTED. PT HAS BEEN PLEASANT AND COOPERATIVE. APPETITE IS GOOD AND HE SNACKS BETWEEN MEALS. PT IS [place] AND HAS CHERRY GROWER VISUAL DEFECITS THAT REQUIRE DIRECTIONAL CUES WITH AMBULATION. FALL PRECAUTIONS AND HOURLY ROUNDING CONTINUE.
[2018-11-05 20:05] VITALS: BP 93/59
--- NOTE | 2018-11-06 05:26 | NUR ---
ASSUMED PT CARE AT 1930. PT ALERT AND ORIENTED X4, POLITE AND COOPERATIVE WITH CARES. PT IS EXTREMELY [place] AND HAS VISUAL DEFITIS. TRANSFERS WITH MIN ASSIST, GAIT BELT AND WALKER AND NEEDS DIRECTIONAL CUES FOR POOR VISION. PT UP TO BATHROOM X2 OVERNIGHT TO VOID. DENIED PAIN. 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 USES CALL LIGHT APPROPRITELY. CALL LIGHT AND FREQUENTLY USED ITEMS WITHIN REACH. HOURLY ROUNDING IN PROGESS, WILL CONTINUE TO MONTIOR.
[2018-11-06 08:00] VITALS: BP 117/66
[2018-11-06 19:58] VITALS: BP 111/65
--- NOTE | 2018-11-07 05:37 | NUR ---
ASSUMED CARE AT 1920. ALERT AND ORIENTED. PLEASANT. DENIED ANY PAIN. MIN ASSIST WITH GAIT BELT AND WALKER. UP TO BATHROOM OR USES URINAL. 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 SLEPT WELL MOST OF THE NIGHT. CALL LIGHT IN REACH AND BED ALARM ON.
--- NOTE | 2018-11-07 16:41 | NUR ---
PATIENT HAS BEEN AMBULATING WITH ROLLING WALKER AND GAIT BELT. REQUESTED PAIN MEDS AFTER THERAPY. NO FURTHER COMPLAINTS. INCISION HEALED RT HIP. SKIN INTACT. NO SIGN OF DISTRESS. CONT. WITH CURRENT PLAN OF CARE.
[2018-11-07 19:30] VITALS: BP 113/68
[2018-11-08 04:29] LABS: HEMATOCRIT 42.4 % (42.0-52.0); HEMOGLOBIN 14.4 gm/dL (14.0-18.0); MCH 28.9 pg (26.0-34.0); MCV 85.2 fL (80.0-100.0); MPV 8.6 fl. (7.2-11.1); RBC 4.97 mil/uL (4.50-6.00); RDW-CV 14.8 % (10.5-14.5)
[2018-11-08 04:46] LABS: CALCIUM 9.4 mg/dL (8.5-10.1); CREATININE 1.1 mg/dL (0.6-1.3); MAGNESIUM 1.8 mg/dL (1.8-2.4); POTASSIUM 4.3 mmol/L (3.5-5.1)
--- NOTE | 2018-11-08 05:22 | NUR ---
ASSUMED PT CARE AT 1930. PT ALERT AND ORIENTED, POLITE AND COOPERATIVE WITH CARES. TRANSFERS WITH MIN ASSIST, GAIT BELT AND WALKER. UP TO BATHROOM X1 TO VOID. PT HAS IMPAIRED VISION. USES URINAL, STAFF EMPTIES. LEFT HIP INCISION HEALED AND CHERYL. SLEPT WELL OVERNIGHT. CALL LIGHT WITHIN REACH. BED ALARM ON FOR SAFETY. HOURLY ROUNDING IN PROGRESS, WILL CONTINUE TO MONITOR.
[2018-11-08 07:15] VITALS: BP 113/74
[2018-11-08 13:44] VITALS: BP 113/74
[2018-11-08 14:03] VITALS: BP 113/74
[2018-11-08] MEDS ORDERED: TAPAZOLE10 MG PO (14:49)
[2018-11-08] MEDS ORDERED: SENOKOT-S1 TA2 PO (14:50)
--- NOTE | 2018-11-08 15:08 | NUR ---
Pt to dc today to [facility]. Pt dtr Carmel providing transportation. SW spoke with admissions at [facility] and faxed dc orders and med list. Pt nurse aware. SW copied chart for continuation of care. ANN met with pt and pt dtr and discussed with pt the medical DPOA and finanical DPOA, pt expressed understanding of forms and appointed his dtr Carmel as agent for both and on financial DPOA, listed Dena of [employer] as alternate agent. [facility] ph [phone] fax [phone]
[2018-11-08 15:18] VITALS: BP 113/74
--- NOTE | 2018-11-08 15:19 | NUR ---
PATIENT HAS BEEN ALERT AND ORIENTED TODAY VERY PLEASANT. UP STANDBY, WALKER AND GAIT BELT. NO COPMPLAINTS OF PAIN TODAY, APPETITE IS GOOD, VITAL SIGNS STABLE ON ROOM AIR. PATIENT IS BEING DISCHARGED TO [facility] TO CONTINUE TO REHAB. HAS WORKED WELL WITH THERAPY TODAY. PATIENT LEFT WITH DAUGHTER TO GO TO [facility]. REPORT CALLED AND GIVEN. LEFT VIA WHEELCHAIR BY [employer] AND DAUGHTER.
== END 2018-11-08 15:21 | DRG 543 ==
LOC: M.REH 15:49
PROVIDERS: Family Medicine; Internal Medicine; ADMIT Physical Medicine & Rehabilitation
DX: M80.852A Other osteoporosis with current pathological fracture, left femur, initial encounter for fracture (principal); E44.0 Moderate protein-calorie malnutrition; N39.0 Urinary tract infection, site not specified; M80.08XA Age-related osteoporosis with current pathological fracture, vertebra(e), initial encounter for fracture; R53.81 Other malaise; I71.4 Abdominal aortic aneurysm, without rupture; F17.210 Nicotine dependence, cigarettes, uncomplicated; E05.90 Thyrotoxicosis, unspecified without thyrotoxic crisis or storm; Z86.73 Personal history of transient ischemic attack (TIA), and cerebral infarction without residual deficits; Z79.899 Other long term (current) drug therapy; Z79.82 Long term (current) use of aspirin; Z68.24 Body mass index [BMI] 24.0-24.9, adult

== ENCOUNTER 2020-07-24 12:12 | Emergency (ER) | payer MEDICARE, MEDICAID ==
[~2020-07-24] VITALS: Ht 167.6 cm; Wt 68.0 kg
[~2020-07-24 12:12] MED LIST changes: +ELIQUIS2.5 MG PO; +KEFLEX500 M1 PO; +MAG-AL PLUS SUS30 ML PO; +NICOTINE TRANSD14 M1 TRANSDERM; +NORCO 5-325 TA1 EACH PO; +ROXICODONE5 M2 PO; +SENOKOT-S1 TA2 PO; +TAPAZOLE10 MG PO; +VITAMIN D2000 UNIT PO
[2020-07-24] MEDS ORDERED: ZOLOFT25 MG (12:20)
[2020-07-24] MEDS ORDERED: TYMLOS1.56 ML SUBQ (12:20)
[2020-07-24 12:35] LABS: ABSOLUTE BASOPHILS 0.1 thou/uL (0.0-0.2); ABSOLUTE EOSINOPHILS 0.2 thou/uL (0.0-0.7); ABSOLUTE LYMPHOCYTES 1.5 thou/uL (0.8-5.3); ABSOLUTE MONOCYTES 0.5 thou/uL (0.0-1.2); ABSOLUTE NEUTROPHILS 4.7 thou/uL (1.6-8.1); BASOPHILS 0.9 %; EOSINOPHILS 3.1 %; HEMATOCRIT 41.5 % (42.0-52.0); HEMOGLOBIN 13.7 gm/dL (14.0-18.0); LYMPHOCYTES 21.7 %; MCH 28.1 pg (26.0-34.0); MCHC 33.1 g/dL (28.0-37.0); MONOCYTES 7.7 %; MPV 7.9 fl. (7.2-11.1); NUCLEATED RBCS 0 /100WBC; PLATELET COUNT* 290 thou/uL (150-400); POLYS 66.6 %; RBC 4.88 mil/uL (4.50-6.00); RDW-CV 15.3 % (10.5-14.5)
[2020-07-24 13:09] LABS: CALCIUM 8.2 mg/dL (8.5-10.1); CREATININE 1.1 mg/dL (0.6-1.3); POTASSIUM 4.5 mmol/L (3.5-5.1)
[2020-07-24 13:18] LABS: APTT 25.9 Seconds (25.0-31.3); INR 1.1; PROTIME 11.2 Seconds (9.20-11.50)
[2020-07-24 13:20] LABS: ALBUMIN 2.8 g/dL (3.4-5.0); MAGNESIUM 2.3 mg/dL (1.8-2.4); TOTAL BILIRUBIN 0.3 mg/dL (<0.1-1.0); TOTAL PROTEIN 7.3 g/dL (6.4-8.2)
--- NOTE | 2020-07-24 14:22 | EKG ---
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: VALE : 1950 Requested By: Renetta De La Fuente Order Number: [id number] MD: Suraj Curran Measurements Intervals [place] Rate: 87 P: 74 ND: 156 QRS: 76 QRSD: 87 T: 66 QT: 370 QTc: 445 Interpretive Statements Sinus rhythm Baseline wander in lead(s) II,III,aVF Compared to ECG 10/17/2018 15:19:40 No significant changes Electronically Signed On 07-24-2020 14:22:24 PUBLIC SAFETY TELECOMMUNICATOR by Suraj Curran [email or web address] <ELECTRONICALLY SIGNED> By: Suraj Curran MD, FACC 07/24/20 1422 1217 1217 Suraj Curran MD, [facility] /EPI
[2020-07-24 18:59] VITALS: BP 112/78
== END 2020-07-24 18:00 | disposition short-term general hospital (02) ==
LOC: M.ERS 12:12
PROVIDERS: Nurse Practitioner Family
DX: S36.892A Contusion of other intra-abdominal organs, initial encounter (principal); I71.4 Abdominal aortic aneurysm, without rupture; Z20.822 Contact with and (suspected) exposure to COVID-19; E03.9 Hypothyroidism, unspecified; Z86.73 Personal history of transient ischemic attack (TIA), and cerebral infarction without residual deficits; Z87.440 Personal history of urinary (tract) infections; Z90.49 Acquired absence of other specified parts of digestive tract; X50.9XXA Other and unspecified overexertion or strenuous movements or postures, initial encounter; Y93.89 Activity, other specified; Y92.89 Other specified places as the place of occurrence of the external cause; Y99.8 Other external cause status